=== PATIENT | male | born 1955 | race Two or more races ===

== ENCOUNTER 2023-01-01 07:20 | Outpatient (CLI) | payer OTHER | END 2023-01-01 07:29 | disposition home or self-care (01) | LOC: RX STUDY 07:20 | PROVIDERS: ATTEND Otolaryngology Plastic Surgery within the Head & Neck | DX: K21.9 Gastro-esophageal reflux disease without esophagitis (principal); E04.1 Nontoxic single thyroid nodule ==

== ENCOUNTER 2023-04-08 06:36 | Day surgery (SDC) | payer OTHER ==
[2023-04-08] MEDS ORDERED: fentaNYL CITRATE 50 MCG/ML AMPUL IV PUSH ONE (11:30)
[2023-04-08] MEDS ORDERED: MIDAZOLAM HCL 2 MG/2 ML VIAL IV ONE (11:30)
== END 2023-04-08 12:35 | disposition home or self-care (01) ==
LOC: AMB-ENDOS 06:36
PROVIDERS: ATTEND Colon & Rectal Surgery
DX: K63.5 Polyp of colon (principal); D12.2 Benign neoplasm of ascending colon; K57.30 Diverticulosis of large intestine without perforation or abscess without bleeding